=== PATIENT | female | born 1975 | race Caucasian/White ===

== ENCOUNTER 2020-12-10 07:06 | Day surgery (SDC) | payer OTHER ==
[~2020-12-10] VITALS: Ht 160 cm; Wt 47.4 kg
[2020-12-10 07:25] VITALS: BP 112/79
[2020-12-10 09:53] VITALS: BP 94/62
[2020-12-10 10:25] LABS: ALKALINE PHOSPHATASE 55 u/l (38-126); ANION GAP 12 (6-22 (CALC)); BILIRUBIN, TOTAL 0.9 mg/dL (0.0-1.4); BUN 16 mg/dL (7-17); BUN/CREATININE RATIO 26 (12-20 (CALC)); CARBON DIOXIDE 25 mmol/l (22-30); CHLORIDE 108 mmol/l (95-108); CREATININE 0.6 mg/dL (0.5-1.0); GFR > 60 ML/MIN (>=60 (CALC)); GFR FOR AFR.AMER. > 60 ML/MIN (>=60 (CALC)); POTASSIUM 4.4 mmol/l (3.5-5.1); SGOT/AST 47 u/l (14-36); SODIUM 141 mmol/l (137-146); TOTAL PROTEIN 8.9 g/dL (6.3-8.2)
[2020-12-10 10:27] LABS: HEMATOCRIT 33.7 % (37.0-47.0); IMMATURE GRANULOCYTES 0.3 % (0.0-5.0); MEAN CELL VOLUME 93.4 fL CALC (80.0-100.0); MEAN CORPUSCULAR HGB 30.5 pG CALC (26.0-32.0); MEAN CORPUSCULAR HGB CONC 32.6 g/dL CAL (32.0-36.0); NEUT# 2.65 thou/uL (2.00-7.15); RED BLOOD COUNT 3.61 mill/uL (4.20-5.60); RED CELL DISTRI WIDTH 13.3 % (11.5-15.5)
[2020-12-10 10:39] LABS: BETA-HCG, QUANT(RESULT NUMBER) 6 mIU/mL
[2020-12-10 20:59] VITALS: BP 121/78
[2020-12-11 04:54] VITALS: BP 121/78
[2020-12-11 05:59] LABS: ALKALINE PHOSPHATASE 42 u/l (38-126); ANION GAP 9 (6-22 (CALC)); BUN 13 mg/dL (7-17); BUN/CREATININE RATIO 19 (12-20 (CALC)); CARBON DIOXIDE 25 mmol/l (22-30); CHLORIDE 110 mmol/l (95-108); CREATININE 0.7 mg/dL (0.5-1.0); GFR > 60 ML/MIN (>=60 (CALC)); GFR FOR AFR.AMER. > 60 ML/MIN (>=60 (CALC)); POTASSIUM 4.4 mmol/l (3.5-5.1); SGOT/AST 17 u/l (14-36); SODIUM 140 mmol/l (137-146)
[2020-12-11 06:00] LABS: ALBUMIN 3.5 g/dL (3.2-5.0); BILIRUBIN, TOTAL 0.5 mg/dL (0.0-1.4); TOTAL PROTEIN 6.1 g/dL (6.3-8.2)
== END 2020-12-11 13:45 | disposition home or self-care (01) | DRG 897 ==
LOC: ANR 07:06 → MS2 07:07 → ANR 12:43
PROVIDERS: Nurse Practitioner; ATTEND Anesthesiology
DX: F11.20 Opioid dependence, uncomplicated (principal)
CPT/HCPCS: J2060; J2354